=== PATIENT | female | born 1985 | race Two or more races ===

== ENCOUNTER 2021-07-02 08:24 | Day surgery (SDC) | payer OTHER ==
[~2021-07-02 08:24] MED LIST: INTEGRA PLUS C1 EACH PO; LORAZEPAM0.5 MG PO; MAGNESIUM GLUCO27 MG PO; RISPERDAL4 MG PO
[2021-07-02] MEDS ORDERED: MIRALAX17 GM PO (12:14)
[2021-07-02] MEDS ORDERED: TYLENOL ARTHRI650 MG PO (12:14)
[2021-07-02] MEDS ORDERED: ULTRAM50 MG PO (12:14)
[2021-07-02] MEDS ORDERED: NEURONTIN300 MG PO (13:59)
== END 2021-07-02 16:20 | disposition home or self-care (01) ==
LOC: CIR.AMB 08:24
PROVIDERS: ATTEND Surgery
DX: K43.6 Other and unspecified ventral hernia with obstruction, without gangrene (principal); Z20.822 Contact with and (suspected) exposure to COVID-19